=== PATIENT | male | born 1995 | race Asian ===

== ENCOUNTER 2021-12-14 20:25 | Emergency (ER) | payer OTHER ==
[~2021-12-14] VITALS: Ht 175.3 cm; Wt 78.9 kg
[2021-12-14 21:48] VITALS: BP 106/88; TEMP 98.3
== END 2021-12-14 21:48 | disposition home or self-care (01) ==
LOC: ED 20:25
PROC: 0H96XZZ Drainage of Back Skin, External Approach (ICD-10-PCS; principal; 2021-12-14)
DX: L02.212 Cutaneous abscess of back [any part, except buttock and flank] (principal)
CPT/HCPCS: 99282